=== PATIENT | female | born 1965 ===

== ENCOUNTER 2020-10-16 10:21 | Day surgery (SDC) | payer OTHER ==
[~2020-10-16 10:21] MED LIST: FENOFIBRA PO; FORTAMET500 MG PO; SIMVASTA PO
== END 2020-10-16 21:45 | disposition home or self-care (01) ==
LOC: CIR.AMB 10:21
PROVIDERS: ATTEND Student in an Organized Health Care Education/Training Program
DX: N84.0 Polyp of corpus uteri (principal)